=== PATIENT | female | born 1985 | race Two or more races ===

== ENCOUNTER 2020-04-20 14:55 | Inpatient (IN) | payer OTHER ==
[~2020-04-20] VITALS: Ht 160 cm; Wt 2.7 kg
[2020-05-13] MEDS ORDERED: PRENATAL CAPLE1 EAC1 PO (16:47)
== END 2020-05-17 13:51 | disposition home or self-care (01) | DRG 788 ==
LOC: LDR 05-13 16:28 → O/R 05-14 06:06 → SURG-SUITE 05-14 07:18 → OB/GYN 05-16 12:30 → SURG-SUITE 05-17 13:51
PROVIDERS: ADMIT Obstetrics & Gynecology; ATTEND Obstetrics & Gynecology
PROC: 3E0P7VZ Introduction of Hormone into Female Reproductive, Via Natural or Artificial Opening (ICD-10-PCS; 2020-05-13)
PROC: 4A1HXCZ Monitoring of Products of Conception, Cardiac Rate, External Approach (ICD-10-PCS; 2020-05-13)
PROC: 3E033VJ Introduction of Other Hormone into Peripheral Vein, Percutaneous Approach (ICD-10-PCS; 2020-05-14)
PROC: 10D00Z1 Extraction of Products of Conception, Low, Open Approach (ICD-10-PCS; principal; 2020-05-14 07:00)
DX: O61.0 Failed medical induction of labor (principal); Z3A.39 39 weeks gestation of pregnancy; Z37.0 Single live birth; Z20.828 Contact with and (suspected) exposure to other viral communicable diseases